=== PATIENT | male | born 1960 | race Caucasian/White ===

== ENCOUNTER 2017-01-18 11:51 | Inpatient (IN) | payer OTHER ==
[2017-01-18 13:26] VITALS: BMI 23.9
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
[2017-01-18] MEDS ORDERED: chlordiazePOXIDE HCL 25 MG CAPSULE PO ONE (15:55)
[2017-01-18] MEDS ORDERED: MAG HYDROX/AL HYDROX/SIMETH 30 ML UNIT-DOSE CUP PO PRN (15:55)
[2017-01-18] MEDS ORDERED: P-EPHED 60MG/TRIPROLIDI 2.5MG TABLET PO PRN (15:55)
[2017-01-18] MEDS ORDERED: NICOTINE POLACRILEX 4 MG GUM BC PRN (15:55)
[2017-01-18] MEDS ORDERED: LOPERAMIDE HCL 2 MG CAPSULE PO PRN (15:55)
[2017-01-18] MEDS ORDERED: MENTHOL/PHENOL 1 EACH UD MM PRN (15:55)
[2017-01-18] MEDS ORDERED: diphenhydrAMINE HCL 50 MG CAPSULE PO PRN (15:55)
[2017-01-18] MEDS ORDERED: ACETAMINOPHEN 325 MG TABLET (FP) PO PRN (15:55)
[2017-01-18] MEDS ORDERED: guaiFENesin/D-METHORPHAN HB 10 ML UNIT-DOSE CUPS PO PRN (15:55)
[2017-01-18] MEDS ORDERED: IBUPROFEN 400 MG TABLET (FP) PO PRN (15:55)
[2017-01-18] MEDS ORDERED: MAGNESIUM HYDROX 2400MG/30ML ORAL SUSPENSION 30 ML CUP PO PRN (15:55)
[2017-01-18] MEDS ORDERED: MAGNESIUM CITRATE 300 ML BOTTLE PO PRN (15:55)
[2017-01-18] MEDS ORDERED: chlordiazePOXIDE HCL 25 MG CAPSULE PO PRN (15:55)
[2017-01-18] MEDS ORDERED: ALBUTEROL SO4 6.7 GM HFA INHALER IH PRN (16:00)
[2017-01-18] MEDS: chlordiazePOXIDE HCL 25 MG CAPSULE PO SCH ×2 (17:17→22:46)
[2017-01-18] MEDS: ASPIRIN 81 MG CHEWABLE TABLETS PO SCH (17:17)
[2017-01-18] MEDS: NICOTINE 21 MG/24 HOURS TOPICAL PATCH TD SCH (17:17)
[2017-01-18] MEDS: levETIRAcetam 500 MG TABLET (FP) PO SCH (22:46)
[2017-01-18] MEDS: THIAMINE HCL 100 MG TABLET (FP) PO SCH (22:46)
[2017-01-19] MEDS: chlordiazePOXIDE HCL 25 MG CAPSULE PO SCH ×4 (05:37→22:43)
--- NOTE | 2017-01-19 08:35 | PN ---
S CIWA - CIWA Score Nausea/Vomitin-Int. Nausea w/Dry Heave Muscle Tremors: 4-Moderate,w/Arms Extend Anxiety: 4-Mod. Anxious/Guarded Agitation: 4-Moderately Restless Paroxysmal Sweats: 3 Orientation: 0-Oriented Tacttile Disturbances: 0-None Auditory Disturbances: 0-None Visual Disturbances: 0-None Headache: 0-None Present CIWA-Ar Total Score: 19 BHS Progress Note (SOAP) Subjective: nausea, sweats, interrupted sleep, anxiety, tremors Objective: 01/19/17 08:34 Vital Signs - 8 hr 01/19/17 01/19/17 03:30 06:43 Temperature 97.1 F L Pulse Rate 65 Respiratory 18 16 Rate Blood Pressure 100/67 labs pending Assessment: 01/19/17 08:35 withdrawal sx Plan: cont detox, methadone ordered 40mg regular dose, LDM 01/18/2017 will increase dose to 40mg today, order entered d/w nurse
[2017-01-19 09:38] LABS: MCH 30.7 pg (25.7-33.7); MCHC 32.3 g/dl (32.0-35.9); MEAN CELL VOLUME 95.1 fl (80-96); MEAN PLT VOLUME 10.6 fl (7.5-11.1); PLATELET COUNT 297 K/MM3 (134-434); RDW 13.2 % (11.9-15.9); WHITE BLOOD COUNT 10.9 K/mm3 (4.0-10.0)
[2017-01-19 09:56] LABS: ALBUMIN 3.6 g/dl (3.4-5.0); ANION GAP 9 (8-16); CALCIUM 9.1 mg/dL (8.5-10.1); CO2 26 mmol/L (21-32); GLUCOSE,RANDOM 101 mg/dL (74-106); SGOT/AST 22 U/L (15-37); SGPT/ALT 15 U/L (12-78)
[2017-01-19 09:59] LABS: ALK PHOS 116 U/L (45-117); BILIRUBIN,TOTAL 0.5 mg/dL (0.2-1.0); TOT PROT 8.2 g/dl (6.4-8.2)
[2017-01-19] MEDS: PRENATAL VITAMINS W/ FOLIC ACID TABLET (FP) PO SCH (10:50)
[2017-01-19] MEDS: levETIRAcetam 500 MG TABLET (FP) PO SCH ×2 (10:50→22:43)
[2017-01-19] MEDS: amLODIPine BESYLATE 10 MG TABLET (FP) PO SCH (10:51)
[2017-01-19] MEDS: METHADONE HCL 40 MG DISPERSABLE TABLET PO SCH (10:51)
[2017-01-19] MEDS: NICOTINE 21 MG/24 HOURS TOPICAL PATCH TD SCH (10:52)
[2017-01-19] MEDS: ASPIRIN 81 MG CHEWABLE TABLETS PO SCH (10:52)
[2017-01-19 12:37] LABS: HIV 1 & 2 AB NEGATIVE; HIV 1 AGp24 NEGATIVE
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
--- NOTE | 2017-01-19 13:11 | EKG ---
Test Reason : Blood Pressure : / mmHG Vent. Rate : 055 BPM Atrial Rate : 055 BPM P-R Int : 116 ms QRS Dur : 078 ms QT Int : 440 ms P-R-T Axes : 072 068 070 degrees QTc Int : 420 ms SINUS BRADYCARDIA RSR' IN V1-V2 POSSIBLE LEFT ATRIAL ENLARGEMENT PROBABLE EARLY REPOLARIZATION PATTERN NO PREVIOUS ECGS AVAILABLE REPEAT EKG IF CLINICALLY INDICATED Confirmed by BIANKA ROWLAND MD ([id number]) on 01/19/2017 1:10:41 PM Referred By: Confirmed By:BIANKA ROWLAND MD
[2017-01-19 15:49] LABS: URINE APPEARANCE CLEAR; URINE BILIRUBIN NEGATIVE (NEGATIVE); URINE BLOOD NEGATIVE (NEGATIVE); URINE COLOR LTYELLOW; URINE GLUCOSE (UA) NEGATIVE (NEGATIVE); URINE KETONE NEGATIVE (NEGATIVE); URINE LEUK ESTERASE NEGATIVE (NEGATIVE); URINE NITRITE NEGATIVE (NEGATIVE); URINE PROTEIN NEGATIVE (NEGATIVE); URINE UROBILINOGEN NEGATIVE mg/dL (0.2-1.0)
[2017-01-19] MEDS: QUEtiapine FUMARATE 50 MG TABLET PO SCH (22:43)
[2017-01-19] MEDS: THIAMINE HCL 100 MG TABLET (FP) PO SCH (22:43)
[2017-01-20] MEDS: chlordiazePOXIDE HCL 25 MG CAPSULE PO SCH ×2 (05:40→10:48)
[2017-01-20] MEDS: ASPIRIN 81 MG CHEWABLE TABLETS PO SCH (10:48)
[2017-01-20] MEDS: PRENATAL VITAMINS W/ FOLIC ACID TABLET (FP) PO SCH (10:48)
[2017-01-20] MEDS: levETIRAcetam 500 MG TABLET (FP) PO SCH ×2 (10:48→22:18)
[2017-01-20] MEDS: amLODIPine BESYLATE 10 MG TABLET (FP) PO SCH (10:49)
[2017-01-20] MEDS: NICOTINE 21 MG/24 HOURS TOPICAL PATCH TD SCH (10:50)
[2017-01-20] MEDS: METHADONE HCL 40 MG DISPERSABLE TABLET PO SCH (10:52)
[2017-01-20] MEDS: chlordiazePOXIDE 5 MG CAPSULE PO SCH ×2 (18:08→22:18)
[2017-01-20] MEDS: QUEtiapine FUMARATE 50 MG TABLET PO SCH (22:18)
[2017-01-20] MEDS: THIAMINE HCL 100 MG TABLET (FP) PO SCH (22:18)
[2017-01-21] MEDS: METHADONE HCL 40 MG DISPERSABLE TABLET PO SCH (05:54)
[2017-01-21] MEDS: chlordiazePOXIDE 5 MG CAPSULE PO SCH ×2 (06:19→14:16)
--- NOTE | 2017-01-21 09:41 | PN ---
S CIWA - CIWA Score Nausea/Vomitin Muscle Tremors: 4-Moderate,w/Arms Extend Anxiety: 4-Mod. Anxious/Guarded Agitation: 4-Moderately Restless Paroxysmal Sweats: 3 Orientation: 0-Oriented Tacttile Disturbances: 1-Very Mild Itch/Numbness Auditory Disturbances: 0-None Visual Disturbances: 0-None Headache: 1-Very Mild CIWA-Ar Total Score: 20 BHS Progress Note (SOAP) Subjective: nausea, sweats, interrupted sleep, anxiety, tremors Objective: Vital Signs - 24 hr 01/20/17 01/20/17 01/20/17 10:00 14:13 18:14 Temperature 98.4 F 98.4 F 97.7 F Pulse Rate 61 77 77 Respiratory 18 20 16 Rate Blood Pressure 112/69 111/73 118/69 01/20/17 01/21/17 01/21/17 22:00 00:30 03:30 Temperature 96.3 F L Pulse Rate 73 Respiratory 18 18 18 Rate Blood Pressure 120/67 01/21/17 06:56 Temperature 97 F L Pulse Rate 63 Respiratory 16 Rate Blood Pressure 98/59 Laboratory Tests 01/18/17 01/19/17 01/19/17 14:00 06:00 06:00 WBC 10.9 H D RBC 4.10 Hgb 12.6 Hct 39.0 MCV 95.1 MCH 30.7 MCHC 32.3 RDW 13.2 Plt Count 297 D MPV 10.6 Sodium 138 Potassium 4.1 Chloride 103 Carbon Dioxide 26 Anion Gap 9 BUN 17 D Creatinine 1.0 D Creat Clearance w eGFR > 60 Random Glucose 101 Calcium 9.1 Total Bilirubin 0.5 D AST 22 ALT 15 Alkaline Phosphatase 116 Total Protein 8.2 Albumin 3.6 Urine Color Urine Appearance Urine pH Ur Specific [place] Urine Protein Urine Glucose (UA) Urine Ketones Urine Blood Urine Nitrite Urine Bilirubin Urine Urobilinogen RPR Titer HIV 1&2 Antibody Screen Negative HIV P24 Antigen Negative 01/19/17 01/19/17 06:00 12:00 WBC RBC Hgb Hct MCV MCH MCHC RDW Plt Count MPV Sodium Potassium Chloride Carbon Dioxide Anion Gap BUN Creatinine Creat Clearance w eGFR Random Glucose Calcium Total Bilirubin AST ALT Alkaline Phosphatase Total Protein Albumin Urine Color Ltyellow Urine Appearance Clear Urine pH 6.0 Ur Specific [place] 1.015 Urine Protein Negative Urine Glucose (UA) Negative Urine Ketones Negative Urine Blood Negative Urine Nitrite Negative Urine Bilirubin Negative Urine Urobilinogen Negative RPR Titer Nonreactive HIV 1&2 Antibody Screen HIV P24 Antigen Assessment: withdrawal sx Plan: cont detox
--- NOTE | 2017-01-21 09:42 | PN ---
[facility] Progress Note (SOAP) Subjective: nausea, sweatss, interrupted sleep ,a nxiety, trmeors, pain on inspiration since he went on crakc cocaine binge Objective: 01/21/17 09:42 Vital Signs - 8 hr 01/21/17 01/21/17 03:30 06:56 Temperature 97 F L Pulse Rate 63 Respiratory 18 16 Rate Blood Pressure 98/59 Laboratory Tests 01/18/17 01/19/17 01/19/17 14:00 06:00 06:00 WBC 10.9 H D RBC 4.10 Hgb 12.6 Hct 39.0 MCV 95.1 MCH 30.7 MCHC 32.3 RDW 13.2 Plt Count 297 D MPV 10.6 Sodium 138 Potassium 4.1 Chloride 103 Carbon Dioxide 26 Anion Gap 9 BUN 17 D Creatinine 1.0 D Creat Clearance w eGFR > 60 Random Glucose 101 Calcium 9.1 Total Bilirubin 0.5 D AST 22 ALT 15 Alkaline Phosphatase 116 Total Protein 8.2 Albumin 3.6 Urine Color Urine Appearance Urine pH Ur Specific [place] Urine Protein Urine Glucose (UA) Urine Ketones Urine Blood Urine Nitrite Urine Bilirubin Urine Urobilinogen RPR Titer HIV 1&2 Antibody Screen Negative HIV P24 Antigen Negative 01/19/17 01/19/17 06:00 12:00 WBC RBC Hgb Hct MCV MCH MCHC RDW Plt Count MPV Sodium Potassium Chloride Carbon Dioxide Anion Gap BUN Creatinine Creat Clearance w eGFR Random Glucose Calcium Total Bilirubin AST ALT Alkaline Phosphatase Total Protein Albumin Urine Color Ltyellow Urine Appearance Clear Urine pH 6.0 Ur Specific [place] 1.015 Urine Protein Negative Urine Glucose (UA) Negative Urine Ketones Negative Urine Blood Negative Urine Nitrite Negative Urine Bilirubin Negative Urine Urobilinogen Negative RPR Titer Nonreactive HIV 1&2 Antibody Screen HIV P24 Antigen Assessment: 01/21/17 09:42 withdrawal sx Plan: cont detox, ensure, naprosyn ATC for pain w protonix
[2017-01-21] MEDS: NAPROXEN 500 MG TABLET (FP) PO SCH ×2 (10:57→22:32)
[2017-01-21] MEDS: PANTOPRAZOLE 40 MG TABLET (FP) PO SCH (10:57)
[2017-01-21] MEDS: levETIRAcetam 500 MG TABLET (FP) PO SCH ×2 (10:57→22:32)
[2017-01-21] MEDS: PRENATAL VITAMINS W/ FOLIC ACID TABLET (FP) PO SCH (10:57)
[2017-01-21] MEDS: ASPIRIN 81 MG CHEWABLE TABLETS PO SCH (10:57)
[2017-01-21] MEDS: amLODIPine BESYLATE 10 MG TABLET (FP) PO SCH (10:57)
[2017-01-21] MEDS: NICOTINE 21 MG/24 HOURS TOPICAL PATCH TD SCH (10:59)
[2017-01-21] MEDS: chlordiazePOXIDE HCL 10 MG CAPSULE PO SCH ×2 (18:07→22:32)
[2017-01-21] MEDS: THIAMINE HCL 100 MG TABLET (FP) PO SCH (22:32)
[2017-01-21] MEDS: QUEtiapine FUMARATE 50 MG TABLET PO SCH (22:32)
[2017-01-22] MEDS: chlordiazePOXIDE HCL 10 MG CAPSULE PO SCH (06:32)
[2017-01-22 09:38] VITALS: BP 120/73; PULSE 71; TEMP 97.5
[2017-01-22] MEDS: ASPIRIN 81 MG CHEWABLE TABLETS PO SCH (10:30)
[2017-01-22] MEDS: PANTOPRAZOLE 40 MG TABLET (FP) PO SCH (10:43)
[2017-01-22] MEDS: levETIRAcetam 500 MG TABLET (FP) PO SCH (10:43)
[2017-01-22] MEDS: amLODIPine BESYLATE 10 MG TABLET (FP) PO SCH (10:44)
[2017-01-22] MEDS: PRENATAL VITAMINS W/ FOLIC ACID TABLET (FP) PO SCH (10:44)
[2017-01-22] MEDS: NICOTINE 21 MG/24 HOURS TOPICAL PATCH TD SCH (10:44)
[2017-01-22] MEDS: NAPROXEN 500 MG TABLET (FP) PO SCH (10:45)
[2017-01-22] MEDS: METHADONE HCL 40 MG DISPERSABLE TABLET PO SCH (10:47)
--- NOTE | 2017-01-22 10:51 | DS ---
[facility] Detox Discharge Summary Admission Date: 01/18/17 Discharge Date: 01/22/17 - History Present History: Alcohol Dependence, Cocaine Dependence, Opioid Dependence, MMTP - Physical Exam Results Vital Signs: Vital Signs Temperature 97.5 F L 01/22/17 09:38 Pulse Rate 71 01/22/17 09:38 Respiratory Rate 18 01/22/17 09:38 Blood Pressure 120/73 01/22/17 09:38 O2 Sat by Pulse Oximetry (%) Laboratory Tests 01/18/17 01/19/17 01/19/17 14:00 06:00 06:00 WBC RBC Hgb Hct MCV MCH MCHC RDW Plt Count MPV Sodium 138 Potassium 4.1 Chloride 103 Carbon Dioxide 26 Anion Gap 9 BUN 17 D Creatinine 1.0 D Creat Clearance w eGFR > 60 Random Glucose 101 Calcium 9.1 Total Bilirubin 0.5 D AST 22 ALT 15 Alkaline Phosphatase 116 Total Protein 8.2 Albumin 3.6 Urine Color Urine Appearance Urine pH Ur Specific [place] Urine Protein Urine Glucose (UA) Urine Ketones Urine Blood Urine Nitrite Urine Bilirubin Urine Urobilinogen Levetiracetam None detected RPR Titer HIV 1&2 Antibody Screen Negative HIV P24 Antigen Negative 01/19/17 01/19/17 01/19/17 06:00 06:00 12:00 WBC 10.9 H D RBC 4.10 Hgb 12.6 Hct 39.0 MCV 95.1 MCH 30.7 MCHC 32.3 RDW 13.2 Plt Count 297 D MPV 10.6 Sodium Potassium Chloride Carbon Dioxide Anion Gap BUN Creatinine Creat Clearance w eGFR Random Glucose Calcium Total Bilirubin AST ALT Alkaline Phosphatase Total Protein Albumin Urine Color Ltyellow Urine Appearance Clear Urine pH 6.0 Ur Specific [place] 1.015 Urine Protein Negative Urine Glucose (UA) Negative Urine Ketones Negative Urine Blood Negative Urine Nitrite Negative Urine Bilirubin Negative Urine Urobilinogen Negative Levetiracetam RPR Titer Nonreactive HIV 1&2 Antibody Screen HIV P24 Antigen Pertinent Admission Physical Exam Findings: withdrawal sx - Treatment Hospital Course: Detox Protocol Followed, Detoxed Safely, Responded well, Discharged Condition Good, Rehab Referral Accepted Patient has Accepted a Rehab Referral to: Yes - Medication Discharge Medications: Ambulatory Orders Albuterol Sulfate Inhaler - [Ventolin HFA Inhaler -] 2 inh PO Q4H PRN 12/16/15 Aspirin [ASA -] 81 mg PO DAILY 12/16/15 Levetiracetam [Keppra -] 750 mg PO BID 12/16/15 Amlodipine Besylate [Norvasc -] 10 mg PO DAILY 01/18/17 Quetiapine Fumarate [Seroquel -] 100 mg PO HS 01/18/17 Quetiapine Fumarate [Seroquel] 100 mg PO HS #30 tablet 01/19/17 - Diagnosis (1) Alcohol dependence with withdrawal Current Visit: Yes Status: Chronic Qualifiers: Complication of substance-induced condition: uncomplicated Qualified Code(s): F10.230 - Alcohol dependence with withdrawal, uncomplicated (2) Cocaine dependence Current Visit: Yes Status: Chronic Qualifiers: Substance use status: uncomplicated Qualified Code(s): F14.20 - Cocaine dependence, uncomplicated (3) Opioid dependence on agonist therapy Current Visit: Yes Status: Acute (4) Substance induced mood disorder Current Visit: Yes Status: Acute (5) Asthma Current Visit: Yes Status: Chronic Qualifiers: Asthma severity: mild intermittent Asthma complication type: uncomplicated Qualified Code(s): J45.20 - Mild intermittent asthma, uncomplicated (6) Bipolar disorder Current Visit: Yes Status: Chronic (7) COPD (chronic obstructive pulmonary disease) Current Visit: Yes Status: Chronic Qualifiers: COPD type: emphysema Emphysema type: panlobular Qualified Code(s ): J43.1 - Panlobular emphysema (8) Hepatitis C Current Visit: Yes Status: Chronic Qualifiers: Viral hepatitis chronicity: carrier Qualified Code(s): B18.2 - Chronic viral hepatitis C (9) Hypertension Current Visit: Yes Status: Chronic Qualifiers: Hypertension type: essential hypertension Qualified Code(s): I10 - Essential (primary) hypertension (10) Nicotine dependence Current Visit: Yes Status: Chronic Qualifiers: Nicotine product type: cigarettes Substance use status: uncomplicated Qualified Code(s): F17.210 - Nicotine dependence, cigarettes, uncomplicated (11) Seizure disorder Current Visit: Yes Status: Chronic (12) Anemia Current Visit: Yes Status: Suspected Qualifiers: Anemia type: iron deficiency Iron deficiency anemia type: inadequate dietary iron intake Qualified Code(s): D50.8 - Other iron deficiency anemias (13) Diabetes mellitus Current Visit: Yes Status: Suspected Qualifiers: Diabetes mellitus type: due to underlying condition Diabetes mellitus complication status: without complication Diabetes mellitus senior care insulin use: without senior care use Qualified Code(s): E08.9 - Diabetes mellitus due to underlying condition without complications; Z79.4 - exterminator ( current) use of insulin (14) Cannabis dependence Current Visit: Yes Status: Chronic (15) Bipolar 1 disorder, mixed, severe Current Visit: Yes Status: Chronic - AMA Did Patient Leave Against Medical Advice: No
== END 2017-01-22 12:33 | disposition other institution (70) | DRG 773 ==
LOC: YASAS 11:51 → Y6N 14:47
PROVIDERS: ADMIT Internal Medicine; ATTEND Internal Medicine
PROC: HZ2ZZZZ Detoxification Services for Substance Abuse Treatment (ICD-10-PCS; principal; 2017-01-18)
DX: F11.20 Opioid dependence, uncomplicated (principal); F10.230 Alcohol dependence with withdrawal, uncomplicated; F14.20 Cocaine dependence, uncomplicated; F12.20 Cannabis dependence, uncomplicated; F17.210 Nicotine dependence, cigarettes, uncomplicated; F31.9 Bipolar disorder, unspecified; F19.24 Other psychoactive substance dependence with psychoactive substance-induced mood disorder; G40.909 Epilepsy, unspecified, not intractable, without status epilepticus; G47.00 Insomnia, unspecified; I10 Essential (primary) hypertension; B18.2 Chronic viral hepatitis C; J43.1 Panlobular emphysema; D50.8 Other iron deficiency anemias; E11.9 Type 2 diabetes mellitus without complications; Z79.4 Long term (current) use of insulin
CPT/HCPCS: 36415; 71020-TC; 80053; 81003; 85027; 86593; 87389; 93005; 93010

== ENCOUNTER 2017-01-22 13:01 | Inpatient (IN) | payer OTHER ==
[2017-01-22] MEDS ORDERED: ALBUTEROL SO4 6.7 GM HFA INHALER IH PRN (13:53)
[2017-01-22] MEDS ORDERED: MENTHOL/PHENOL 1 EACH UD MM PRN (13:53)
[2017-01-22] MEDS ORDERED: MAGNESIUM HYDROX 2400MG/30ML ORAL SUSPENSION 30 ML CUP PO PRN (13:53)
[2017-01-22] MEDS ORDERED: MAG HYDROX/AL HYDROX/SIMETH 30 ML UNIT-DOSE CUP PO PRN (13:53)
[2017-01-22] MEDS ORDERED: P-EPHED 60MG/TRIPROLIDI 2.5MG TABLET PO PRN (13:53)
[2017-01-22] MEDS ORDERED: guaiFENesin/D-METHORPHAN HB 10 ML UNIT-DOSE CUPS PO PRN (13:53)
[2017-01-22] MEDS ORDERED: NICOTINE POLACRILEX 2 MG GUM BUC PRN (13:53)
[2017-01-22] MEDS ORDERED: LOPERAMIDE HCL 2 MG CAPSULE PO PRN (13:53)
[2017-01-22] MEDS ORDERED: MAGNESIUM CITRATE 300 ML BOTTLE PO PRN (13:53)
--- NOTE | 2017-01-22 13:56 | HP ---
[facility] Rehab Assess/Revision - Admission History Admitted to Rehab from: [facility] [place] Date of Admission to Rehab: 01/22/17 - Vital signs Vital Signs: Vital Signs Period Temp Pulse Resp BP Sys/Mccord Pulse Ox Last 24 Hr 98.4 F 72 18 115/68 - Findings Detox History & Physical reviewed: Yes Concur with findings: Yes Inpatient Rehab Admission - Initial Determination Are CD services needed?: Yes Free of communicable disease: Yes Not in need of hospitalization: Yes - Rehab Admission Criteria Comorbidities: Yes Patient is meeting Inpatient Rehab admission criteria:: Yes
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
[2017-01-22] MEDS: THIAMINE HCL 100 MG TABLET (FP) PO SCH (21:15)
[2017-01-22] MEDS: QUEtiapine FUMARATE 100 MG TABLET (FP) PO SCH (21:17)
[2017-01-22] MEDS: LEVETIRACETAM 250 MG, LEVETIRACETAM 500 MG PO SCH (21:20)
[2017-01-22] MEDS ORDERED: levETIRAcetam 500 MG TABLET (FP) PO SCH (22:00)
[2017-01-23] MEDS: METHADONE HCL 40 MG DISPERSABLE TABLET PO SCH (06:57)
[2017-01-23] MEDS: ASPIRIN 81 MG CHEWABLE TABLETS PO SCH (10:05)
[2017-01-23] MEDS: amLODIPine BESYLATE 10 MG TABLET (FP) PO SCH (10:05)
[2017-01-23] MEDS: PRENATAL VITAMINS W/ FOLIC ACID TABLET (FP) PO SCH (10:05)
[2017-01-23] MEDS: NICOTINE 14 MG/24 HOURS TOPICAL PATCH TD SCH (10:06)
[2017-01-23] MEDS: LEVETIRACETAM 250 MG, LEVETIRACETAM 500 MG PO SCH (12:05)
[2017-01-23] MEDS: THIAMINE HCL 100 MG TABLET (FP) PO SCH (21:28)
[2017-01-23] MEDS: QUEtiapine FUMARATE 100 MG TABLET (FP) PO SCH (21:28)
[2017-01-23] MEDS: levETIRAcetam 500 MG TABLET (FP) PO SCH (21:29)
[2017-01-24] MEDS: METHADONE HCL 40 MG DISPERSABLE TABLET PO SCH (06:55)
[2017-01-24] MEDS: ASPIRIN 81 MG CHEWABLE TABLETS PO SCH (10:12)
[2017-01-24] MEDS: levETIRAcetam 500 MG TABLET (FP) PO SCH ×2 (10:13→21:22)
[2017-01-24] MEDS: amLODIPine BESYLATE 10 MG TABLET (FP) PO SCH (10:13)
[2017-01-24] MEDS: PRENATAL VITAMINS W/ FOLIC ACID TABLET (FP) PO SCH (10:13)
[2017-01-24] MEDS: NICOTINE 14 MG/24 HOURS TOPICAL PATCH TD SCH (10:14)
--- NOTE | 2017-01-24 13:09 | PN ---
[facility] Progress Note Note: Patient seen for c/o weakness in right arm which he noticed since this morning at ~9am. Dice Spotter went to evaluate patient and he was partially cooperative with the interview. He gets agitated and irritable at sba underwriter, stating that sba underwriter is asking him questions that sba underwriter already has the answer for such as: what's today's date, where are you right now, what is your name etc. Patient told sba underwriter that his right arm is paralyzed since last night and denies any history of CVA. He reports pmhx of seizure (stated he takes keppra), HTN, Hepatitis C, Emphysema, Asthma, sciatica/LBP and pphx of bipolar disorder and depression. As per patient, he doesn't have a PCP because he stopped seeing doctors and goes to the ER to get his medications. Patient stated his daughter 2 years ago and he began using drugs and this is his 3-4th rehab. Dice Spotter told patient that he will see a doctor outpatient after he finished rehab and that he doesn't want to be examined. He raised his right arm to shoulder level showing sba underwriter that he has no problem with his arm. He has been ambulating with cane and requested to end the interview so he got up and left.
[2017-01-24] MEDS: THIAMINE HCL 100 MG TABLET (FP) PO SCH (21:23)
[2017-01-24] MEDS: QUEtiapine FUMARATE 100 MG TABLET (FP) PO SCH (21:23)
[2017-01-25] MEDS: METHADONE HCL 40 MG DISPERSABLE TABLET PO SCH (06:30)
[2017-01-25] MEDS: levETIRAcetam 500 MG TABLET (FP) PO SCH ×2 (10:08→22:00)
[2017-01-25] MEDS: ASPIRIN 81 MG CHEWABLE TABLETS PO SCH (10:08)
[2017-01-25] MEDS: PRENATAL VITAMINS W/ FOLIC ACID TABLET (FP) PO SCH (10:08)
[2017-01-25] MEDS: amLODIPine BESYLATE 10 MG TABLET (FP) PO SCH (10:09)
[2017-01-25] MEDS: NICOTINE 14 MG/24 HOURS TOPICAL PATCH TD SCH (10:10)
[2017-01-25] MEDS: QUEtiapine FUMARATE 100 MG TABLET (FP) PO SCH (21:59)
[2017-01-25] MEDS: THIAMINE HCL 100 MG TABLET (FP) PO SCH (22:00)
[2017-01-26] MEDS: METHADONE HCL 40 MG DISPERSABLE TABLET PO SCH (06:42)
[2017-01-26] MEDS: PRENATAL VITAMINS W/ FOLIC ACID TABLET (FP) PO SCH (10:12)
[2017-01-26] MEDS: levETIRAcetam 500 MG TABLET (FP) PO SCH ×2 (10:12→21:16)
[2017-01-26] MEDS: ASPIRIN 81 MG CHEWABLE TABLETS PO SCH (10:12)
[2017-01-26] MEDS: amLODIPine BESYLATE 10 MG TABLET (FP) PO SCH (10:12)
[2017-01-26] MEDS: NICOTINE 14 MG/24 HOURS TOPICAL PATCH TD SCH (10:12)
[2017-01-26] MEDS: ACETAMINOPHEN 325 MG TABLET (FP) PO PRN ×2 (10:14→21:17)
[2017-01-26] MEDS: hydrOXYzine PAMOATE 50 MG CAPSULE (FP) PO PRN (10:14)
[2017-01-26] MEDS ORDERED: SERTRALINE HCL 25 MG TABLET (FP) PO ONE (15:13)
--- NOTE | 2017-01-26 15:19 | PN ---
Psychiatric Progress Note Vital Signs: Vital Signs Period Temp Pulse Resp BP Sys/Mccord Pulse Ox Last 24 Hr 98.0 F 64-102 16-16 95-110/61-80 Date of Session: 01/26/17 Chief Complaint:: "depressed" HPI: Patient addressing alcohol, opioid, cocaine dependence comorbid Bipolar disorder. ROS: HTN, seizure (last seizure episode was one month ago, on Keppra), Asthma, COPD, Anemia, Hepatitis C, arthritis, right knee fractured in. Current Medications: Active Medications Generic Name Dose Route Start Last Admin Trade Name Freq PRN Reason Stop Dose Admin Acetaminophen 650 mg 01/22/17 13:53 01/26/17 10:14 Tylenol - PO 650 mg Q4H PRN Administration FEVER OR PAIN Al Hydroxide/Mg Hydroxide 30 ml 01/22/17 13:53 Mylanta Oral Suspension - PO Q6H PRN DYSPEPSIA Albuterol Sulfate 2 puff 01/22/17 13:53 Ventolin Hfa Inhaler - IH Q4H PRN SHORT OF BREATH/WHEEZING Amlodipine Besylate 10 mg 01/23/17 10:00 01/26/17 10:12 Norvasc - PO 10 mg DAILY CLEOPATRA Administration Aspirin 81 mg 01/23/17 10:00 01/26/17 10:12 Asa - PO 81 mg DAILY CLEOPATRA Administration Diphenhydramine HCl 50 mg 01/22/17 13:53 Benadryl - PO HSMR1 PRN FOR ITCHING Eucalyptus/Menthol/Phenol/Sorbitol 1 each 01/22/17 13:53 Cepastat Lozenge - MM Q4H PRN SORE THROAT Guaifenesin 10 ml 01/22/17 13:53 Robitussin Dm - PO Q6H PRN COUGH Hydroxyzine Pamoate 50 mg 01/22/17 13:53 01/26/17 10:14 Vistaril - PO 50 mg Q4H PRN Administration AGITATION Levetiracetam 750 mg 01/23/17 22:00 01/26/17 10:12 Keppra - PO 750 mg BID CLEOPATRA Administration Loperamide HCl 4 mg 01/22/17 13:53 Imodium - PO Q6H PRN DIARRHEA Magnesium Hydroxide 30 ml 01/22/17 13:53 Milk Of Magnesia - PO DAILY PRN CONSTIPATION Methadone HCl 40 mg 01/23/17 06:00 01/26/17 06:42 Dolophine - PO 01/29/17 05:59 40 mg DAILY@0600 CLEOPATRA Administration Nicotine 14 mg 01/23/17 10:00 01/26/17 10:12 Nicoderm Patch - TD Not Given DAILY CLEOPATRA Nicotine Polacrilex 2 mg 01/22/17 13:53 Nicorette Gum - BUC Q2H PRN NICOTINE REPLACEMENT RX Multivit/Folic Acid/Iron 1 tab 01/23/17 10:00 01/26/17 10:12 Vitamins (Sjr) - PO 1 tab DAILY CLEOPATRA Administration Pseudoephedrine/Triprolidine 1 combo 01/22/17 13:53 Actifed - PO TID PRN NASAL CONGESTION Quetiapine Fumarate 150 mg 01/26/17 15:12 Seroquel - PO HS CLEOPATRA Sertraline HCl 25 mg 01/26/17 15:13 Zoloft - PO 01/26/17 15:14 ONCE ONE Thiamine HCl 100 mg 01/22/17 22:00 01/25/17 22:00 Vitamin B1 - PO 100 mg HS CLEOPATRA Administration Medication(s) Change(s): Increase Seroquel 150 mg po hs add Zoloft 25 mg po daily Current Side Effect: No Lab tests ordered: No Lab tests reviewed: Yes Provider note:: Patient reports he has been feeling very depressed, having crying spells, missing his daughter, unable to sleep well, guilt feeling about her daughter's . Supportive therapy and psychoeducation about his current medications provided, will increase Seroquel 150 mg po hs add Zoloft 25 mg po daily. Total face to face time:: 35 Mental Status Exam - Mental Status Exam Alert and Oriented to: Time, Place, Person Cognitive Function: Grossly Intact Patient Appearance: Well Groomed Mood: Depressed, Sad, Anxious Affect: Mood Congruent (tearful) Patient Behavior: Cooperative Speech Pattern: Appropriate Voice Loudness: Normal Thought Process: Goal Oriented Thought Disorder: Not Present Hallucinations: Denies Suicidal Ideation: Denies Homicidal Ideation: Denies Insight/Judgement: Fair Sleep: Poorly Appetite: Fair Muscle strength/Tone: Normal Gait/Station: Normal Psychiatric Treatment Plan - Problem List (1) Opioid dependence on agonist therapy Current Visit: No (2) Bipolar disorder Current Visit: No (3) COPD (chronic obstructive pulmonary disease) Current Visit: No Qualifiers: COPD type: emphysema Emphysema type: panlobular Qualified Code(s ): J43.1 - Panlobular emphysema Comment: SYMBICORT (4) Cocaine dependence Current Visit: No Qualifiers: Substance use status: uncomplicated Qualified Code(s): F14.20 - Cocaine dependence, uncomplicated (5) Alcohol dependence Current Visit: Yes (6) Bereavement Current Visit: Yes
[2017-01-26] MEDS: THIAMINE HCL 100 MG TABLET (FP) PO SCH (21:16)
[2017-01-26] MEDS: QUEtiapine FUMARATE 50 MG TABLET PO SCH (21:16)
[2017-01-27] MEDS: METHADONE HCL 40 MG DISPERSABLE TABLET PO SCH (06:37)
[2017-01-27] MEDS: PRENATAL VITAMINS W/ FOLIC ACID TABLET (FP) PO SCH (10:09)
[2017-01-27] MEDS: amLODIPine BESYLATE 10 MG TABLET (FP) PO SCH (10:10)
[2017-01-27] MEDS: ASPIRIN 81 MG CHEWABLE TABLETS PO SCH (10:10)
[2017-01-27] MEDS: levETIRAcetam 500 MG TABLET (FP) PO SCH ×2 (10:14→21:27)
[2017-01-27] MEDS: NICOTINE 14 MG/24 HOURS TOPICAL PATCH TD SCH (10:15)
[2017-01-27] MEDS: hydrOXYzine PAMOATE 50 MG CAPSULE (FP) PO PRN (10:16)
[2017-01-27] MEDS: SERTRALINE HCL 25 MG TABLET (FP) PO SCH (12:42)
[2017-01-27] MEDS: THIAMINE HCL 100 MG TABLET (FP) PO SCH (21:27)
[2017-01-27] MEDS: QUEtiapine FUMARATE 50 MG TABLET PO SCH (21:27)
[2017-01-27] MEDS: diphenhydrAMINE HCL 50 MG CAPSULE PO PRN (21:29)
[2017-01-28] MEDS: METHADONE HCL 40 MG DISPERSABLE TABLET PO SCH (06:22)
[2017-01-28] MEDS: levETIRAcetam 500 MG TABLET (FP) PO SCH (10:14)
[2017-01-28] MEDS: amLODIPine BESYLATE 10 MG TABLET (FP) PO SCH (10:14)
[2017-01-28] MEDS: ASPIRIN 81 MG CHEWABLE TABLETS PO SCH (10:14)
[2017-01-28] MEDS: SERTRALINE HCL 25 MG TABLET (FP) PO SCH (10:14)
[2017-01-28] MEDS: PRENATAL VITAMINS W/ FOLIC ACID TABLET (FP) PO SCH (10:14)
[2017-01-28] MEDS: NICOTINE 14 MG/24 HOURS TOPICAL PATCH TD SCH (10:15)
[2017-01-28] MEDS: diphenhydrAMINE HCL 50 MG CAPSULE PO PRN (21:26)
[2017-01-28] MEDS: THIAMINE HCL 100 MG TABLET (FP) PO SCH (21:26)
[2017-01-28] MEDS: QUEtiapine FUMARATE 50 MG TABLET PO SCH (21:26)
[2017-01-28] MEDS: levETIRAcetam 250 MG TABLET (FP) PO SCH (21:27)
[2017-01-29] MEDS: METHADONE HCL 40 MG DISPERSABLE TABLET PO SCH (06:55)
[2017-01-29] MEDS: ASPIRIN 81 MG CHEWABLE TABLETS PO SCH (10:12)
[2017-01-29] MEDS: amLODIPine BESYLATE 10 MG TABLET (FP) PO SCH (10:12)
[2017-01-29] MEDS: levETIRAcetam 250 MG TABLET (FP) PO SCH ×2 (10:12→21:24)
[2017-01-29] MEDS: PRENATAL VITAMINS W/ FOLIC ACID TABLET (FP) PO SCH (10:12)
[2017-01-29] MEDS: SERTRALINE HCL 25 MG TABLET (FP) PO SCH (10:12)
[2017-01-29] MEDS: NICOTINE 14 MG/24 HOURS TOPICAL PATCH TD SCH (10:13)
[2017-01-29] MEDS: LIDOCAINE 5% TOPICAL PATCH TP SCH (14:33)
[2017-01-29] MEDS: QUEtiapine FUMARATE 50 MG TABLET PO SCH (21:24)
[2017-01-29] MEDS: THIAMINE HCL 100 MG TABLET (FP) PO SCH (21:26)
[2017-01-29] MEDS: diphenhydrAMINE HCL 50 MG CAPSULE PO PRN (21:27)
[2017-01-29] MEDS ORDERED: LIDOCAINE PATCH REMOVAL MC SCH (22:00)
[2017-01-30] MEDS: METHADONE HCL 40 MG DISPERSABLE TABLET PO SCH (06:24)
[2017-01-30 06:49] VITALS: TEMP 98.2
[2017-01-30] MEDS: levETIRAcetam 250 MG TABLET (FP) PO SCH (10:15)
[2017-01-30] MEDS: ASPIRIN 81 MG CHEWABLE TABLETS PO SCH (10:16)
[2017-01-30] MEDS: amLODIPine BESYLATE 10 MG TABLET (FP) PO SCH (10:17)
[2017-01-30] MEDS: PRENATAL VITAMINS W/ FOLIC ACID TABLET (FP) PO SCH (10:17)
[2017-01-30] MEDS: SERTRALINE HCL 25 MG TABLET (FP) PO SCH (10:17)
[2017-01-30] MEDS: LIDOCAINE 5% TOPICAL PATCH TP SCH (10:17)
[2017-01-30] MEDS: NICOTINE 14 MG/24 HOURS TOPICAL PATCH TD SCH (10:17)
[2017-01-30 11:45] VITALS: BP 115/72; PULSE 74
--- NOTE | 2017-01-30 15:22 | PN ---
[facility] Progress Note Note: Called and informed by nursing staff that patient requests to leave prematurely. He was admitted on 01/22/17 which makes exactly 7 days. He is referred back to his program, [facility] in [facility]. He is on Zoloft 265 mg po daily and Seroquel 100 mg po HS. Scripts for these medications are electronically tramsmitted to [facility] [address] [place] [address]
== END 2017-01-30 09:40 | disposition home or self-care (01) | DRG 772 ==
LOC: YASAS 13:01 → Y5N 13:02
PROVIDERS: ADMIT Psychiatry & Neurology Psychiatry; ATTEND Psychiatry & Neurology Psychiatry
PROC: HZ42ZZZ Group Counseling for Substance Abuse Treatment, Cognitive-Behavioral (ICD-10-PCS; principal; 2017-01-22)
DX: F11.20 Opioid dependence, uncomplicated (principal); F10.20 Alcohol dependence, uncomplicated; F14.20 Cocaine dependence, uncomplicated; F31.9 Bipolar disorder, unspecified; J43.1 Panlobular emphysema; Z63.4 Disappearance and death of family member